=== PATIENT | male | born 1995 | race Caucasian/White ===

== ENCOUNTER 2016-07-11 06:16 | Emergency (ER) | payer BC, OTHER ==
[~2016-07-11] VITALS: Ht 185.4 cm; Wt 95.3 kg
[2016-07-11] MEDS ORDERED: ONDANSETRON 4MG/2ML VIAL (J2405) IV ONE (07:00)
[2016-07-11] MEDS ORDERED: NS 1,000 ML IV ONE (07:00)
[2016-07-11] MEDS ORDERED: KETOROLAC 30 MG/ML VIAL (J1885) IV ONE (07:00)
[2016-07-11 07:36] LABS: BASO % 0.3 % (0.0-1.0); EOS # 0.1 K/mm3 (0.0-0.50); EOS % 1.4 % (0.0-3.0); LARGE UNSTAINED CELL # 0.1 K/mm3 (0.0-0.4); LARGE UNSTAINED CELL % 1.7 % (0.0-4.0); LYMPH # 2.2 K/mm3 (1.5-6.5); MEAN CORPUSCULAR HEMOGLOBIN 29.8 pg (27.0-33.0); MEAN CORPUSCULAR HGB CONC 34.7 g/dl (32.0-36.5); MONO # 0.6 K/mm3 (0.0-0.8); MONO % 7.6 % (0.0-5.0); NEUTROPHILS # 4.6 K/mm3 (1.8-7.7); PLATELET COUNT, AUTOMATED 261 k/mm3 (150-450); RED CELL DISTRIBUTION WIDTH 12.3 % (11.5-14.5); WHITE BLOOD COUNT 7.5 K/mm3 (4.0-10.0)
[2016-07-11 08:16] LABS: ALBUMIN/GLOBULIN RATIO 1.21 (1.00-1.93); ALKALINE PHOSPHATASE 110 U/L (45-117); ALT/SGPT 19 U/L (12-78); ANION GAP 6 MEQ/L (8-16); AST/SGOT 16 U/L (15-37); BILIRUBIN,DIRECT 0.1 MG/DL (0.0-0.2); BILIRUBIN,TOTAL 0.3 MG/DL (0.2-1.0); BLOOD UREA NITROGEN 11 MG/DL (7-18); CALCIUM LEVEL 8.5 MG/DL (8.5-10.1); CARBON DIOXIDE LEVEL 29 MEQ/L (21-32); CHLORIDE LEVEL 105 MEQ/L (98-107); CREATININE FOR GFR 0.83 MG/DL (0.70-1.30); GLUCOSE, FASTING 139 MG/DL (70-105); POTASSIUM SERUM 4.1 MEQ/L (3.5-5.1); SODIUM LEVEL 140 MEQ/L (136-145); TOTAL PROTEIN 7.3 GM/DL (6.4-8.2)
[2016-07-11] MEDS ORDERED: FLOM5CAP PO (08:57)
[2016-07-11] MEDS ORDERED: ZOFR4TAB3 PO (08:57)
[2016-07-11] MEDS ORDERED: TAMSULOSIN 0.4 MG CAP PO ONE (09:00)
[2016-07-11 09:12] VITALS: BP 140/83
--- NOTE | 2016-07-11 09:35 | REP ---
CT ABDOMEN/PELVIS WITHOUT CONTRAST: HISTORY: Right midabdominal pain. The liver, gallbladder, pancreas, spleen, adrenal glands, and left kidney are normal in appearance. There is mild dilatation of the right renal collecting system and ureter. This is secondary to a 2.5 mm calculus present at the right ureterovesical junction. There is no mass, adenopathy, or free fluid. The visualized lungs are clear. CT PELVIS: A 2.5 mm calculus is present at the right ureterovesical junction. There are no filling defects in the urinary bladder. The prostate gland is normal in appearance. IMPRESSION: There is a 2.5 mm calculus at the right ureterovesical junction. There is mild hydronephrosis. Signed by Abilio Nevarez MD 07/11/2016 09:46 A
== END 2016-07-11 09:37 | disposition home or self-care (01) ==
LOC: M ED 07:17
DX: N20.1 Calculus of ureter (principal)
CPT/HCPCS: 74176; 80048; 80076; 81001; 83690; 85025; 87086; 96374; 96375; 99283; J1885; J2405

== ENCOUNTER 2021-01-14 11:24 | Emergency (ER) | payer BC, OTHER ==
[~2021-01-14] VITALS: Ht 182.9 cm; Wt 92.8 kg
[~2021-01-14 11:24] MED LIST: FLOM0.4C39 PO; ZOFR4TAB14 PO
--- OUTSIDE RECORDS SUMMARY | 2021-01-14 11:29 | CCD ---
Author Author [facility] Organization [facility] Address Unknown Phone Unavailable Care Team Providers Care Cdl Truck Driver Name Role Phone Sabrina Hooper Unavailable [phone] Sabrina Hooper Unavailable [phone] Re-disclosure Warning The records that you are about to access may contain information from federally-assisted alcohol or drug abuse programs. If such information is present, then the following federally mandated warning applies: This information has been disclosed to you from records protected by federal confidentiality rules (42 CFR part 2). The federal rules prohibit you from making any further disclosure of this information unless further disclosure is expressly permitted by the written consent of the person to whom it pertains or as otherwise permitted by 42 CFR part 2. A general authorization for the release of medical or other information is NOT sufficient for this purpose. The Federal rules restrict any use of the information to criminally investigate or prosecute any alcohol or drug abuse patient.The records that you are about to access may contain highly sensitive health information, the redisclosure of which is protected by Article 27-F of the [facility] Public Health law. If you continue you may have access to information: Regarding HIV / AIDS; Provided by facilities licensed or operated by the [facility] Office of Mental Health; or Provided by the [facility] Office for People With Developmental Disabilities. If such information is present, then the following [facility] mandated warning applies: This information has been disclosed to you from confidential records which are protected by state law. State law prohibits you from making any further disclosure of this information without the specific written consent of the person to whom it pertains, or as otherwise permitted by law. Any unauthorized further disclosure in violation of state law may result in a fine or fci sentence or both. A general authorization for the release of medical or other information is NOT sufficient authorization for further disc losure. Encounters Encounter Providers Location Date Indications Data Source(s ) Outpatient Attender: Sabrina GONZALEZ 08/2020 09:29:35 AM EST - 01/14/2021 10:58:16 AM EST [facility] ([facility]) Medications No Information Insurance Providers Payer name Policy type / Coverage type Policy ID Covered green party ID Covered green party's relationship to muhammad Policy Muhammad Plan Information [employer] [id number] Self [id number] DO NOT USE [id number] [id number] [facility] [id number] [id number] [facility] [id number] FA2 [id number] [facility] [id number] SF2 [id number] Problems, Conditions, and Diagnoses No Information Surgeries/Procedures No Information Results No Information Social History No Information
[2021-01-14] MEDS ORDERED: ACET500P3 PO (11:35)
[2021-01-14] MEDS ORDERED: IBUP200T46 PO (11:36)
[2021-01-14] MEDS ORDERED: NS 1,000 ML IV ONE (21:40)
--- OUTSIDE RECORDS SUMMARY | 2021-01-14 21:46 | CCD ---
Author Author [facility] Organization [facility] Address Unknown Phone Unavailable Care Team Providers Care Pipe Inspector Name Role Phone Sabrina Hooper Unavailable [phone] Sabrina Hooper Unavailable [phone] Re-disclosure Warning The records that you are [...] is protected by Article 27-F of the [facility] Public Health law. If you continue you may have access to information: Regarding HIV / AIDS; Provided by facilities licensed or operated by the [facility] Office of Mental Health; or Provided by the [facility] Office for People With Developmental Disabilities. If such information is present, then the following [facility] mandated warning applies: This information has [...] law may result in a fine or usp sentence or both. A general authorization for the release of medical or other information is NOT sufficient authorization for further disc losure. Encounters Encounter Providers Location Date Indications Data Source(s ) Outpatient Attender: Sabrina GONZALEZ 08/2020 09:29:35 AM EST - 01/14/2021 10:58:16 AM EST [facility] Medications No Information Insurance Providers Payer name Policy type / Coverage type Policy ID Covered republican ID Covered republican's relationship to muhammad Policy Muhammad Plan Information [employer] [id number] Self [id number] [employer] [id number] FA2 [id number] DO NOT USE [id number] SF2 [id number] [facility] [id number] FA2 [id number] [facility] [id number] SF2 [id number] Problems, Conditions, and Diagnoses No Information Surgeries/Procedures No Information Results No Information Social History No Information
[2021-01-14 22:14] LABS: BASO % 0.3 % (0.0-1.0); EOS % 0.3 % (0.0-3.0); HEMATOCRIT 46.4 % (42.0-52.0); HEMOGLOBIN 16.1 g/dl (13.5-17.5); LYMPH # 2.5 10^3/uL (1.5-5.0); LYMPH % 35.7 % (24.0-44.0); MEAN CORPUSCULAR HEMOGLOBIN 29.4 pg (27.0-33.0); MEAN CORPUSCULAR HGB CONC 34.7 g/dl (32.0-36.5); MEAN CORPUSCULAR VOLUME 84.7 fl (80.0-96.0); MONO # 0.8 10^3/uL (0.0-0.8); MONO % 12.2 % (2.0-8.0); NEUTROPHILS # 3.5 10^3/uL (1.5-8.5); NEUTROPHILS % 51.4 % (36.0-66.0); PLATELET COUNT, AUTOMATED 283 10^3/uL (150-450); RED BLOOD COUNT 5.48 10^6/uL (4.30-6.10); WHITE BLOOD COUNT 6.9 10^3/uL (4.0-10.0)
[2021-01-14 22:25] LABS: INR 0.99; PROTHROMBIN TIME 13.5 SECONDS (12.7-14.5)
[2021-01-14 22:28] LABS: D-DIMER QUANT 272.2 ng/ml (<500)
[2021-01-14 22:39] LABS: CK-MB VALUE MASS 1.4 NG/ML (<3.6); MB/CK RELATIVE INDEX 1.46 (< OR =4)
[2021-01-14 22:58] LABS: FREE THYROXINE INDEX 4.9 % (1.4-3.8); MAGNESIUM LEVEL 2.3 MG/DL (1.8-2.4); PHOSPHORUS LEVEL 3.9 MG/DL (2.5-4.9); THYROID STIMULATING HORMONE 3.42 uIU/ML (0.358-3.740)
--- NOTE | 2021-01-14 23:07 | REPVR ---
PROCEDURE INFORMATION: Exam: XR Chest Exam date and time: 01/14/21 (9:49pm) Age: 25 years old Clinical indication: Radiating chest pain. Tachycardia. TECHNIQUE: Imaging protocol: XR of the chest Views: 2 views COMPARISON: CT ABDOMEN PELVIS of 07/11/16 FINDINGS: Lungs: Unremarkable. No consolidation. Pleural spaces: Unremarkable. No pleural effusions. No pneumothorax. Heart/Mediastinum: Unremarkable. No cardiomegaly. Bones/joints: Unremarkable. IMPRESSION: No acute findings. Clear lung briggs Electronically signed by: Galina Richardson On 01/14/2021 23:07:16 PM
[2021-01-15 00:09] LABS: RSV AMPLIFICATION NEGATIVE (NEGATIVE)
[2021-01-15 00:15] VITALS: BP 143/75
--- NOTE | 2021-01-15 13:32 | ECGEPIP ---
[facility] - ED Test Date: 2021-01-14 Pat Name: SETH AUGUSTINE Department: Room: - Gender: Male Corporate Associate Attorney: RS : 1995 Requested By: ANIVAL Wakefield PA-C Order Number: [id number] Reading MD: Jean Melendez Measurements Intervals Manti Rate: 107 P: 71 IN: 172 QRS: 100 QRSD: 104 T: 59 QT: 328 QTc: 437 Interpretive Statements Sinus tachycardia Rightward axis Comparison tracing not on file Electronically Signed on 01-15-2021 13:31:53 EST by Jean Melendez
== END 2021-01-15 00:42 | disposition home or self-care (01) ==
LOC: M ED 11:24
DX: R07.89 Other chest pain (principal); R00.0 Tachycardia, unspecified

== ENCOUNTER → 2021-03-24 | Outpatient (CLI) | payer BC, OTHER ==
[~2021-03-24] MED LIST changes: +ACET500P3 PO; +IBUP200T46 PO
== END ==
LOC: M EKG 11:53
PROVIDERS: ATTEND Physician Assistant Medical
DX: R00.0 Tachycardia, unspecified (principal)

== ENCOUNTER → 2021-04-09 | Outpatient (CLI) | payer BC, OTHER | LOC: M CARPUL 08:44 | PROVIDERS: ATTEND Physician Assistant Medical | DX: R00.0 Tachycardia, unspecified (principal) ==

== ENCOUNTER → 2021-06-24 | Outpatient (CLI) | payer BC, OTHER ==
[2021-06-24 10:21] LABS: C REACTIVE PROTEIN QUANTITATIV < 0.30 MG/DL (0.00-0.30); NT-PRO BNP 22 PG/ML (<125)
== END ==
LOC: M LAB 09:04
PROVIDERS: ATTEND Internal Medicine Cardiovascular Disease
DX: I35.0 Nonrheumatic aortic (valve) stenosis (principal)